=== PATIENT | male | born 1965 ===

== ENCOUNTER 2017-05-14 18:07 | Inpatient (IN) | payer OTHER ==
[2017-05-14 18:30] VITALS: BMI 34.9
[2017-05-14] MEDS ORDERED: Lactated Ringer's 1,000 ML IV ONE (19:36)
--- NOTE | 2017-05-14 19:36 | C.PDOC ---
History Of Present Illness Patient presents to the ER with a complaint of a dull throbbing abdominal pain, associated with nausea, vomiting, and diarrhea that has been worsening since approximately 09:00. Denies fever or chills. Time Seen by Provider: 05/14/17 19:36 Chief Complaint (Nursing): Abdominal Pain History Per: Patient History/Exam Limitations: no limitations Onset/Duration Of Symptoms: Hrs Current Symptoms Are (Timing): Still Present Severity: Moderate Pain Scale Rating Of: 4 Location Of Pain/Discomfort: Diffuse Radiation Of Pain To:: None Quality Of Discomfort: Dull, Other (Throbbing) Associated Symptoms: Nausea, Vomiting, Diarrhea. denies: Fever, Chills Exacerbating Factors: None Alleviating Factors: None Last Bowel Movement: Today Recent travel outside of the [place]: No Additional History Per: Patient Past Medical History Reviewed: Historical Data, Nursing Documentation, Vital Signs Vital Signs: Last Vital Signs Temp 98.6 F 05/14/17 21:04 Pulse 70 05/14/17 21:04 Resp 18 05/14/17 21:04 BP 156/72 H 05/14/17 21:04 Pulse Ox 98 05/14/17 21:04 - Medical History PMH: Asthma, HTN, Pancreatitis Surgical History: Appendectomy Family History: States: No Known Family Hx - Social History Hx Alcohol Use: Yes (last drink 15yrs ago) Hx Substance Use: No - Immunization History Hx Tetanus Toxoid Vaccination: Yes Hx Influenza Vaccination: Yes Hx Pneumococcal Vaccination: Yes Review Of Systems Constitutional: Negative for: Fever, Chills Eyes: Negative for: Vision Change ENT: Negative for: Throat Pain Cardiovascular: Negative for: Chest Pain Respiratory: Negative for: Shortness of Breath Gastrointestinal: Positive for: Nausea, Vomiting, Abdominal Pain, Diarrhea Musculoskeletal: Negative for: Back Pain Skin: Negative for: Rash Neurological: Negative for: Weakness Psych: Negative for: Anxiety Physical Exam - Physical Exam Appears: Non-toxic Skin: Warm, Dry Head: Normacephalic Eye(s): bilateral: Normal Inspection Oral Mucosa: Moist Neck: Supple Chest: Symmetrical, No Tenderness Cardiovascular: Rhythm Regular Respiratory: No Rales, No Rhonchi, No Wheezing Gastrointestinal/Abdominal: Soft, Tenderness (Diffuse), Distention, No Guarding , No Rebound Back: Normal Inspection, No CVA Tenderness Extremity: Normal ROM Extremity: Bilateral: Atraumatic Pulses: Left Dorsalis Pedis: Normal, Right Dorsalis Pedis: Normal Neurological/Psych: Oriented x3 Gait: Steady ED Course And Treatment - Laboratory Results Result Diagrams: 05/14/17 19:40 05/14/17 19:40 O2 Sat by Pulse Oximetry: 97 (room air) Pulse Ox Interpretation: Normal Progress Note: CT abd/pel, blood work, and urinalysis ordered. IV fluids, pepcid , and toradol administered. Disposition Discussed With Dr.: Kaden Velasquez Comment: accepted the pt on his service and took over the care at 9:33 PM Doctor Will See Patient In The: Hospital Counseled Patient/Family Regarding: Studies Performed, Diagnosis - Disposition Disposition: HOSPITALIZED Disposition Time: 19:36 Condition: FAIR Forms: [facility] (Romanian) - POA Present On Arrival: Poor Glycemic Control - Clinical Impression Clinical Impression: Abdominal pain, Pancreatitis - Scribe Statement The provider has reviewed the documentation as recorded by the Scribe Hudson Newberry All medical record entries made by the Scribe were at my direction and personally dictated by me. I have reviewed the chart and agree that the record accurately reflects my personal performance of the history, physical exam, medical decision making, and the department course for this patient. I have also personally directed, reviewed, and agree with the discharge instructions and disposition. Decision To Admit - Pt Status Changed To: Hospital Disposition Of: Inpatient - Admit Certification Admit to Inpatient:: After my assessment, the patient will require hospitalization for at least two midnights. This is because of the severity of symptoms shown, intensity of services needed, and/or the medical risk in this patient being treated as an outpatient. - InPatient: Physician Admission Certification:: After my assessment, the patient will require hospitalization for at least two midnights. This is because of the severity of symptoms shown, intensity of services needed, and/or the medical risk in this patient being treated as an outpatient. - . Bed Request Type: Regular Admitting Physician: Kaden Velasquez Patient Diagnosis: Abdominal pain, Pancreatitis
[2017-05-14 19:43] LABS: BASO # 0.1 K/uL (0.0-0.2); EOS % 0.1 % (0.0-4.0); MONO # 0.9 K/uL (0.0-0.8); NRBC % 0.1 % (0.0-2.0); RED CELL DISTRIBUTION WIDTH 12.9 % (11.5-14.5)
[2017-05-14] MEDS ORDERED: Lactated Ringer's 1,000 ML ONE (19:44)
[2017-05-14] MEDS ORDERED: Iohexol 300 100 ML IJ ONE (19:47)
[2017-05-14 19:59] LABS: ALB/GLOB RATIO 1.1 (1.0-2.1); ALKALINE PHOSPHATASE 100 U/L (38-126); ALT/SGPT 17 U/L (21-72); AST/SGOT 54 U/L (17-59); BLOOD UREA NITROGEN 15 mg/dL (9-20); CALCIUM 7.7 mg/dl (8.6-10.4); CARBON DIOXIDE 25 mmol/L (22-30); CHLORIDE 96 mmol/L (98-107); GFR AFRICAN-AMERICAN > 60; GLUCOSE,RANDOM 198 mg/dL (75-110); POTASSIUM 4.6 mmol/L (3.6-5.2); SODIUM 131 mmol/L (132-148); TOTAL PROTEIN 8.4 g/dL (6.3-8.3)
[2017-05-14 20:04] LABS: BASO % 0.7 % (0.0-2.0); HEMATOCRIT 47.2 % (35.0-51.0); LYMPH # 2.2 K/uL (1.0-4.3); LYMPH % 13.3 % (20.0-40.0); MEAN CELL VOLUME 94.3 fL (80.0-94.0); MEAN CORPUSCULAR HEMOGLOBIN 33.2 pg (27.0-31.0); MEAN CORPUSCULAR HGB CONC 35.2 g/dL (33.0-37.0); MEAN PLATELET VOLUME 7.1 fL (7.2-11.7); MONO % 5.2 % (0.0-10.0); WHITE BLOOD COUNT 16.4 K/uL (4.8-10.8)
[2017-05-14] MEDS ORDERED: Piperacillin/Tazobact 3.375 gm 100 ML IVPB STA (20:17)
[2017-05-14 20:25] LABS: RBC URINE 3 /hpf (0-3); TRANSITIONAL EPITHIAL < 1 /hpf (0-3); URINE BACTERIA RARE (<OCC); URINE BILIRUBIN NEGATIVE (NEGATIVE); URINE BLOOD NEGATIVE (NEGATIVE); URINE COLOR Yellow (YELLOW); URINE GLUCOSE (UA) 3+ mg/dL (Normal); URINE KETONE 1+ mg/dL (NEGATIVE); URINE LEUKOCYTE ESTERASE NEG Leu/uL (Negative); URINE PROTEIN 2+ mg/dL (NEGATIVE); URINE UROBILINOGEN NORMAL mg/dL (0.2-1.0); WBC URINE < 1 /hpf (0-5)
[2017-05-14] MEDS ORDERED: Piperacill/Tazo 3.375gm in Dex 3.375 GM/50 ML BAG IVPB STA (20:44)
[2017-05-14] MEDS ORDERED: Morphine 4 MG/ML VIAL ONE (23:20)
[2017-05-15] MEDS ORDERED: HYDROmorphone 1 mg/ml ISec IVP PRN (01:21)
[2017-05-15] MEDS ORDERED: Sodium Chloride 0.9% 1,000 ML IV SCH (01:30)
--- NOTE | 2017-05-15 07:00 | CP.PCM.PN ---
Subjective - Date & Time of Evaluation Date of Evaluation: 05/15/17 Time of Evaluation: 08:00 - Subjective Subjective: Medicine progress note for Dr. Nasim Velasquez: Patient was seen and examined at bedside this morning. He denied abdominal pain was was tender in the epigastric region during exam. He reported nausea but denied vomiting. He is currently NPO. He states he has had pancreatitis in the past and that his PMD stated he needed to control his diet and not easy greasy foods which he has still done. He denies alcohol use, last drink over 15 years ago. Patient denied fever/chill, SOB, or other symptoms at this time. Objective - Vital Signs/Intake and Output Vital Signs (last 24 hours): Temp Pulse Resp BP Pulse Ox 97.9 F 91 H 23 130/83 94 L 05/14/17 23:55 05/14/17 23:55 05/14/17 23:55 05/14/17 23:55 05/14/17 23:55 Intake and Output: 05/14/17 05/15/17 18:59 06:59 Intake Total 650 Output Total 500 Balance 150 - Medications Medications: Current Medications Enoxaparin Sodium (Lovenox) 40 mg SC DAILY [facility] Hydromorphone HCl (Dilaudid) 1 mg IVP Q4H PRN PRN Reason: Pain, severe (8-10) Last Admin: 05/15/17 04:21 Dose: 1 mg Sodium Chloride (Sodium Chloride 0.9%) 1,000 mls @ 100 mls/hr IV .Q10H PANTERA Last Admin: 05/15/17 01:50 Dose: 100 mls/hr Insulin Aspart (Novolog) 0 unit SC ACHS PANTERA PRN Reason: Protocol Pantoprazole Sodium (Protonix Inj) 40 mg IVP DAILY PANTERA - Labs Labs: 05/14/17 19:40 05/14/17 19:40 - Constitutional Appears: Non-toxic, No Acute Distress - Head Exam Head Exam: ATRAUMATIC, NORMAL INSPECTION - Eye Exam Eye Exam: EOMI - ENT Exam ENT Exam: Mucous Membranes Dry - Respiratory Exam Respiratory Exam: Clear to Ausculation Bilateral, NORMAL BREATHING PATTERN. absent: Accessory Muscle Use, Rales, Rhonchi, Wheezes, Respiratory Distress - Cardiovascular Exam Cardiovascular Exam: REGULAR RHYTHM, +S1, +S2 - GI/Abdominal Exam GI & Abdominal Exam: Soft, Tenderness, Normal Bowel Sounds (obese, mild tenderness in epigastric region with deep palpation). absent: Distended, Firm, Guarding - Extremities Exam Extremities Exam: Normal Inspection. absent: Calf Tenderness - Back Exam Back Exam: NORMAL INSPECTION - Neurological Exam Neurological Exam: Alert, Awake, CN II-XII Intact, Normal Gait, Oriented x3 - Psychiatric Exam Psychiatric exam: Normal Affect, Normal Mood - Skin Skin Exam: Dry, Intact, Normal Color, Warm Assessment and Plan - Assessment and Plan (Free Text) Assessment: 51 year old male with a PMHx of DM and multiple episodes of pancreatitis is admitted for acute pancreatitis: Plan: Acute pancreatitis NPO, will advance diet as tolerating Aggressive fluid hydration Dilaudid 1mg IVP [id number] prn pain Zofran IV prn nausea GI consulted, Dr. Street, help appreciated Lipase - 1267 on admission Amylase 474 AST/ALT - 22/37 Tbil 2.2 Trig 772, Tchol 238, HDL 41, LDL <30 [place] score 2 f/u am labs CTABd/pelvis 05/15 - Findings most compatible with pancreatitis. No definite pseudocyst formation or pancreatic necrosis appreciated at this time. Hepatic steatosis. Sigmoid diverticulosis without acute diverticulitis. Postop changes in distal small bowel. FOllow up CT advised Hyperlipidemia - mixed Trig 772, Tchol 238, HDL 41, LDL <30 Patient on Simvastatin 40mg PO daily and Gemfibrozil 600mg PO BID at home DM Accuchecks ISS Patient is NPO will adjust meds with oral intake Continue home med enalapril 5mg PO daily On hold: Jardiance 10mg PO daily, Metformin 1000mg PO BID Asthma Duonebs prn SOB Controlled Tobacco Abuse Nicotine patch prn Prophylactic Measures Lovenox 40mg SC daily Protonix 40mg IVP daily NPO
[2017-05-15 07:16] LABS: MEAN CORPUSCULAR HEMOGLOBIN 33.6 pg (27.0-31.0); RED CELL DISTRIBUTION WIDTH 13.2 % (11.5-14.5); WHITE BLOOD COUNT 12.5 K/uL (4.8-10.8)
--- NOTE | 2017-05-15 07:56 | CP.PCM.CON ---
<Claudia Graham - Last Filed: 05/15/17 14:18> History of Present Illness - History of Present Illness History of Present Illness: GI Consult Note for Dr. Street Reason for consult: acute pancreatitis 51 year old male with PMHx HTN, DM, pancreatitis, asthma presents with abdominal pain for 1 day. Patient reports pain began in the morning on the day before admission after eating breakfast. Patient admits to having a poor diet. He stated the pain was 10/10 from his epigastric region radiating to his left flank. He admitted to nausea and 5-6 episodes of nonbloody nonbilious emesis at home. Patient also had similar symptoms in June when he was seen at [facility]. He reports that since being seen at the ED last night and receiving Dilaudid his pain had subsided. Denied complaints of fever, chills, headache, dizziness, chest pain, palpitations, SOB, cough, urinary complaints, pain/ swelling in his legs bilaterally. Patient admitted to some constipation. Denied travel/sick contacts and reports being compliant with his medications. PMHx: HTN, DM, pancreatitis, asthma PSurgHx: appendectomy 19 years ago, tonsillectomy 2013 PProcedure: had a colonoscopy years ago [patient cannot remember how long or what was found]; has never had an endoscopy Fam Hx: father had diabetes and HTN; October 2015 from complications of a surgery Social Hx: admits to smoking 3.5 packs of cigarettes a day for years and quit 20 years ago; drank "a lot" of EtOH in the past but quit 15 years ago; denied drug use. Meds: please see chart Allergies: NKDA PMD: Dr. Gusman- last seen Feb 2017 for general check up Review of Systems - Review of Systems All systems: reviewed and no additional remarkable complaints except - Constitutional Constitutional: As Per HPI. absent: Chills, Fever - EENT Eyes: As Per HPI. absent: Blurred Vision Ears: As Per HPI. absent: Dizziness Nose/Mouth/Throat: As Per HPI. absent: Sore Throat - Cardiovascular Cardiovascular: As Per HPI. absent: Chest Pain, Dyspnea, Edema, Pedal Edema - Respiratory Respiratory: As Per HPI. absent: Cough, Dyspnea, Chest Congestion - Gastrointestinal Gastrointestinal: As Per HPI, Abdominal Pain, Constipation, Nausea, Vomiting (5- 6 times at home; nonbloody nonbilious). absent: Diarrhea, Heartburn, Hematemesis, Hematochezia, Melena - Genitourinary Genitourinary: As Per HPI. absent: Dysuria, Hematuria, Pyuria, Nocturia - Musculoskeletal Musculoskeletal: As Per HPI. absent: Numbness, Tingling - Integumentary Integumentary: As Per HPI. absent: Dry Skin, Rash - Neurological Neurological: As Per HPI. absent: Dizziness, Numbness, Headaches, Tingling - Psychiatric Psychiatric: As Per HPI. absent: Anxiety, Depression - Endocrine Endocrine: As Per HPI. absent: Polydipsia, Polyphagia, Polyuria - Hematologic/Lymphatic Hematologic: As Per HPI. absent: Easy Bleeding, Easy Bruising Past Patient History - Past Medical History & Family History Past Medical History?: Yes - Past Social History Smoking Status: Former Smoker - CARDIAC Hx Cardiac Disorders: Yes Hx Hypertension: Yes - PULMONARY Hx Respiratory Disorders: Yes Hx Asthma: Yes - NEUROLOGICAL Hx Neurological Disorder: No - HEENT Hx HEENT Problems: No - RENAL Hx Chronic Kidney Disease: No - ENDOCRINE/METABOLIC Hx Endocrine Disorders: Yes Hx Diabetes Mellitus Type 2: Yes - HEMATOLOGICAL/ONCOLOGICAL Hx Blood Disorders: No - INTEGUMENTARY Hx Dermatological Problems: No - MUSCULOSKELETAL/RHEUMATOLOGICAL Hx Musculoskeletal Disorders: No Hx Falls: No - GASTROINTESTINAL Hx Gastrointestinal Disorders: Yes Hx Pancreatitis: Yes - GENITOURINARY/GYNECOLOGICAL Hx Genitourinary Disorders: No - PSYCHIATRIC Hx Psychophysiologic Disorder: No Hx Substance Use: No - SURGICAL HISTORY Hx Surgeries: Yes Hx Appendectomy: Yes - ANESTHESIA Hx Anesthesia: Yes Hx Anesthesia Reactions: No Hx Malignant Hyperthermia: No Meds Allergies/Adverse Reactions: Allergies Allergy/AdvReac Type Severity Reaction Status Date / Time No Known Allergies Allergy Verified 05/14/17 18:29 - Medications Medications: Current Medications Enoxaparin Sodium (Lovenox) 40 mg SC DAILY [facility] Hydromorphone HCl (Dilaudid) 1 mg IVP Q4H PRN PRN Reason: Pain, severe (8-10) Last Admin: 05/15/17 04:21 Dose: 1 mg Sodium Chloride (Sodium Chloride 0.9%) 1,000 mls @ 100 mls/hr IV .Q10H [facility] Last Admin: 05/15/17 01:50 Dose: 100 mls/hr Insulin Aspart (Novolog) 0 unit SC ACHS [facility] PRN Reason: Protocol Pantoprazole Sodium (Protonix Inj) 40 mg IVP DAILY [facility] Physical Exam - Constitutional Appears: Non-toxic, No Acute Distress - Head Exam Head Exam: ATRAUMATIC, NORMAL INSPECTION, NORMOCEPHALIC - Eye Exam Eye Exam: EOMI, Normal appearance, PERRL. absent: Conjunctival injection, Scleral icterus - ENT Exam ENT Exam: Mucous Membranes Moist - Neck Exam Neck exam: Positive for: Full Rom, Normal Inspection. Negative for: Lymphadenopathy - Respiratory Exam Respiratory Exam: NORMAL BREATHING PATTERN. absent: Accessory Muscle Use, Respiratory Distress - Cardiovascular Exam Cardiovascular Exam: +S1, +S2. absent: Bradycardia, Tachycardia - GI/Abdominal Exam GI & Abdominal Exam: Normal Bowel Sounds, Soft. absent: Firm, Guarding, Organomegaly, Rigid, Tenderness - Extremities Exam Extremities exam: Positive for: normal inspection, pedal pulses present. Negative for: pedal edema - Neurological Exam Neurological exam: Alert, CN II-XII Intact, Oriented x3 - Psychiatric Exam Psychiatric exam: Normal Affect, Normal Mood - Skin Skin Exam: Dry, Intact, Normal Color, Warm Results - Vital Signs Recent Vital Signs: Last Vital Signs Temp 97.9 F 05/14/17 23:55 Pulse 91 H 05/14/17 23:55 Resp 23 05/14/17 23:55 BP 130/83 05/14/17 23:55 Pulse Ox 94 L 05/14/17 23:55 - Labs Result Diagrams: 05/15/17 07:09 05/15/17 07:09 Labs: Laboratory Results - last 24 hr 05/14/17 05/14/17 05/14/17 19:40 19:40 20:09 WBC 16.4 H D RBC 5.00 Hgb 16.6 D Hct 47.2 MCV 94.3 H D MCH 33.2 H MCHC 35.2 RDW 12.9 Plt Count 255 MPV 7.1 L Neut % (Auto) 80.7 H Lymph % (Auto) 13.3 L [place] % (Auto) 5.2 Eos % (Auto) 0.1 Baso % (Auto) 0.7 Neut # 13.3 H Lymph # 2.2 [place] # 0.9 H Eos # 0.0 Baso # 0.1 Sodium 131 L Potassium 4.6 Chloride 96 L Carbon Dioxide 25 Anion Gap 15 BUN 15 Creatinine 0.7 L Est GFR ( Amer) > 60 Est GFR (Non-Af Amer) > 60 POC Glucose (mg/dL) Random Glucose 198 H Calcium 7.7 L Total Bilirubin 3.0 H AST 54 ALT 17 L D Alkaline Phosphatase 100 Total Protein 8.4 H Albumin 4.4 Globulin 4.0 H Albumin/Globulin Ratio 1.1 Lipase 1267 H Urine Color Yellow Urine Clarity Clear Urine pH 7.0 Ur Specific [place] 1.026 Urine Protein 2+ H Urine Glucose (UA) 3+ H Urine Ketones 1+ H Urine Blood Negative Urine Nitrate Negative Urine Bilirubin Negative Urine Urobilinogen Normal Ur Leukocyte Esterase Neg Urine WBC (Auto) < 1 Urine RBC (Auto) 3 Ur Squamous Epith Cells < 1 Ur Transition Epith Cell < 1 Urine Bacteria Rare 05/15/17 07:43 WBC RBC Hgb Hct MCV MCH MCHC RDW Plt Count MPV Neut % (Auto) Lymph % (Auto) [place] % (Auto) Eos % (Auto) Baso % (Auto) Neut # Lymph # [place] # Eos # Baso # Sodium Potassium Chloride Carbon Dioxide Anion Gap BUN Creatinine Est GFR ( Amer) Est GFR (Non-Af Amer) POC Glucose (mg/dL) 233 H Random Glucose Calcium Total Bilirubin AST ALT Alkaline Phosphatase Total Protein Albumin Globulin Albumin/Globulin Ratio Lipase Urine Color Urine Clarity Urine pH Ur Specific [place] Urine Protein Urine Glucose (UA) Urine Ketones Urine Blood Urine Nitrate Urine Bilirubin Urine Urobilinogen Ur Leukocyte Esterase Urine WBC (Auto) Urine RBC (Auto) Ur Squamous Epith Cells Ur Transition Epith Cell Urine Bacteria Assessment & Plan - Assessment and Plan (Free Text) Assessment: 51 year old male with PMHx HTN, DM, pancreatitis, asthma presents with abdominal pain for 1 day. Patient reports pain began in the morning on the day before admission after eating breakfast. GI consulted for acute pancreatitis Plan: - CT abd/pelvis: findings compatible with pancreatitis. No definite pseudocyst formation or pancreatic necrosis appreciated at this time. Hepatic steatosis evident. Sigmoid divericulosis without acute diverticulitis appears stable. Postop changes distal small bowel evident. - Lipase: 1267--> 2486 - Lipid panel abnl: T Cholesterol: 239 LDL: pending HDL: 41 - LR @ 250cc/hr - f/u IgG4, Abd u/s, DBili, UTox, Alc level - pain control with Dilaudid 1mg ivp q4 prn - Zofran for nausea - Protonix 40mg ivp qd - Will trend BUN and hematocrit - Clear liquid diet - Recommend pancreatic CT or EUS outpatient Discussed with Dr. Jad Graham PGY2 <Abner Street Y - Last Filed: 05/15/17 17:32> Meds - Medications Medications: Current Medications Albuterol/Ipratropium (Duoneb 3 Mg/0.5 Mg (3 Ml) Ud) 3 ml INH RQ6 PRN PRN Reason: Shortness of Breath Enalapril Maleate (Vasotec) 5 mg PO DAILY [facility] Last Admin: 05/15/17 11:44 Dose: 5 mg Enoxaparin Sodium (Lovenox) 40 mg SC DAILY [facility] Last Admin: 05/15/17 09:30 Dose: 40 mg Gemfibrozil (Lopid) 600 mg PO BID [facility] Hydromorphone HCl (Dilaudid) 1 mg IVP Q4H PRN PRN Reason: Pain, severe (8-10) Last Admin: 05/15/17 04:21 Dose: 1 mg Lactated Ringer's (Lactated Ringer's) 1,000 mls @ 250 mls/hr IV .Q4H [facility] Last Admin: 05/15/17 17:23 Dose: Not Given Insulin Aspart (Novolog) 0 unit SC ACHS [facility] PRN Reason: Protocol Last Admin: 05/15/17 17:21 Dose: 2 unit Nicotine (Nicoderm Cq) 1 patch TD DAILY [facility] Last Admin: 05/15/17 11:44 Dose: Not Given Ondansetron HCl (Zofran Inj) 4 mg IVP Q12 PRN PRN Reason: Nausea/Vomiting Pantoprazole Sodium (Protonix Inj) 40 mg IVP DAILY [facility] Last Admin: 05/15/17 09:30 Dose: 40 mg Polyethylene Glycol (Miralax) 17 gm PO DAILY [facility] Last Admin: 05/15/17 11:43 Dose: 17 gm Rosuvastatin Calcium (Crestor) 20 mg PO HS [facility] Results - Vital Signs Recent Vital Signs: Last Vital Signs Temp 98.7 F 05/15/17 16:46 Pulse 97 H 05/15/17 16:46 Resp 20 05/15/17 16:46 BP 121/73 05/15/17 16:46 Pulse Ox 98 05/15/17 16:46 - Labs Result Diagrams: 05/15/17 07:09 05/15/17 07:09 Labs: Laboratory Results - last 24 hr 05/14/17 05/14/17 05/14/17 19:40 19:40 20:09 WBC 16.4 H D RBC 5.00 Hgb 16.6 D Hct 47.2 MCV 94.3 H D MCH 33.2 H MCHC 35.2 RDW 12.9 Plt Count 255 MPV 7.1 L Neut % (Auto) 80.7 H Lymph % (Auto) 13.3 L [place] % (Auto) 5.2 Eos % (Auto) 0.1 Baso % (Auto) 0.7 Neut # 13.3 H Lymph # 2.2 [place] # 0.9 H Eos # 0.0 Baso # 0.1 Sodium 131 L Potassium 4.6 Chloride 96 L Carbon Dioxide 25 Anion Gap 15 BUN 15 Creatinine 0.7 L Est GFR ( Amer) > 60 Est GFR (Non-Af Amer) > 60 POC Glucose (mg/dL) Random Glucose 198 H Calcium 7.7 L Total Bilirubin 3.0 H Direct Bilirubin AST 54 ALT 17 L D Alkaline Phosphatase 100 Lactate Dehydrogenase Total Protein 8.4 H Albumin 4.4 Globulin 4.0 H Albumin/Globulin Ratio 1.1 Triglycerides Cholesterol LDL Cholesterol Direct HDL Cholesterol Amylase Lipase 1267 H Urine Color Yellow Urine Clarity Clear Urine pH 7.0 Ur Specific [place] 1.026 Urine Protein 2+ H Urine Glucose (UA) 3+ H Urine Ketones 1+ H Urine Blood Negative Urine Nitrate Negative Urine Bilirubin Negative Urine Urobilinogen Normal Ur Leukocyte Esterase Neg Urine WBC (Auto) < 1 Urine RBC (Auto) 3 Ur Squamous Epith Cells < 1 Ur Transition Epith Cell < 1 Urine Bacteria Rare Urine Opiates Screen Urine Methadone Screen Ur Barbiturates Screen Ur Phencyclidine Scrn Ur Amphetamines Screen U Benzodiazepines Scrn U Oth Cocaine Metabols U Cannabinoids Screen Alcohol, Quantitative 05/15/17 05/15/17 05/15/17 07:09 07:09 07:09 WBC 12.5 H RBC 4.63 Hgb 15.6 Hct 43.3 MCV 93.6 MCH 33.6 H MCHC 35.9 RDW 13.2 Plt Count 224 MPV 6.7 L Neut % (Auto) Lymph % (Auto) [place] % (Auto) Eos % (Auto) Baso % (Auto) Neut # Lymph # [place] # Eos # Baso # Sodium 132 Potassium 4.0 Chloride 100 Carbon Dioxide 23 Anion Gap 13 BUN 17 Creatinine 0.7 L Est GFR ( Amer) > 60 Est GFR (Non-Af Amer) > 60 POC Glucose (mg/dL) Random Glucose 228 H Calcium 7.8 L Total Bilirubin 2.2 H Direct Bilirubin AST 22 ALT 37 Alkaline Phosphatase 77 Lactate Dehydrogenase Total Protein 6.3 Albumin 3.6 Globulin 2.7 Albumin/Globulin Ratio 1.3 Triglycerides Cholesterol LDL Cholesterol Direct HDL Cholesterol Amylase 474 H Lipase 2486 H Urine Color Urine Clarity Urine pH Ur Specific [place] Urine Protein Urine Glucose (UA) Urine Ketones Urine Blood Urine Nitrate Urine Bilirubin Urine Urobilinogen Ur Leukocyte Esterase Urine WBC (Auto) Urine RBC (Auto) Ur Squamous Epith Cells Ur Transition Epith Cell Urine Bacteria Urine Opiates Screen Urine Methadone Screen Ur Barbiturates Screen Ur Phencyclidine Scrn Ur Amphetamines Screen U Benzodiazepines Scrn U Oth Cocaine Metabols U Cannabinoids Screen Alcohol, Quantitative 05/15/17 05/15/17 05/15/17 07:43 09:13 11:16 WBC RBC Hgb Hct MCV MCH MCHC RDW Plt Count MPV Neut % (Auto) Lymph % (Auto) [place] % (Auto) Eos % (Auto) Baso % (Auto) Neut # Lymph # [place] # Eos # Baso # Sodium Potassium Chloride Carbon Dioxide Anion Gap BUN Creatinine Est GFR ( Amer) Est GFR (Non-Af Amer) POC Glucose (mg/dL) 233 H 219 H Random Glucose Calcium Total Bilirubin Direct Bilirubin AST ALT Alkaline Phosphatase Lactate Dehydrogenase Total Protein Albumin Globulin Albumin/Globulin Ratio Triglycerides 772 H D Cholesterol 239 H LDL Cholesterol Direct < 30 HDL Cholesterol 41 Amylase Lipase Urine Color Urine Clarity Urine pH Ur Specific [place] Urine Protein Urine Glucose (UA) Urine Ketones Urine Blood Urine Nitrate Urine Bilirubin Urine Urobilinogen Ur Leukocyte Esterase Urine WBC (Auto) Urine RBC (Auto) Ur Squamous Epith Cells Ur Transition Epith Cell Urine Bacteria Urine Opiates Screen Urine Methadone Screen Ur Barbiturates Screen Ur Phencyclidine Scrn Ur Amphetamines Screen U Benzodiazepines Scrn U Oth Cocaine Metabols U Cannabinoids Screen Alcohol, Quantitative 05/15/17 05/15/17 05/15/17 16:06 16:42 16:59 WBC RBC Hgb Hct MCV MCH MCHC RDW Plt Count MPV Neut % (Auto) Lymph % (Auto) [place] % (Auto) Eos % (Auto) Baso % (Auto) Neut # Lymph # [place] # Eos # Baso # Sodium Potassium Chloride Carbon Dioxide Anion Gap BUN Creatinine Est GFR ( Amer) Est GFR (Non-Af Amer) POC Glucose (mg/dL) 207 H Random Glucose Calcium Total Bilirubin Direct Bilirubin AST ALT Alkaline Phosphatase Lactate Dehydrogenase 437 Total Protein Albumin Globulin Albumin/Globulin Ratio Triglycerides Cholesterol LDL Cholesterol Direct HDL Cholesterol Amylase Lipase Urine Color Urine Clarity Urine pH Ur Specific [place] Urine Protein Urine Glucose (UA) Urine Ketones Urine Blood Urine Nitrate Urine Bilirubin Urine Urobilinogen Ur Leukocyte Esterase Urine WBC (Auto) Urine RBC (Auto) Ur Squamous Epith Cells Ur Transition Epith Cell Urine Bacteria Urine Opiates Screen Negative Urine Methadone Screen Negative Ur Barbiturates Screen Negative Ur Phencyclidine Scrn Negative Ur Amphetamines Screen Negative U Benzodiazepines Scrn Negative U Oth Cocaine Metabols Negative U Cannabinoids Screen Negative Alcohol, Quantitative 05/15/17 05/15/17 16:59 16:59 WBC RBC Hgb Hct MCV MCH MCHC RDW Plt Count MPV Neut % (Auto) Lymph % (Auto) [place] % (Auto) Eos % (Auto) Baso % (Auto) Neut # Lymph # [place] # Eos # Baso # Sodium Potassium Chloride Carbon Dioxide Anion Gap BUN Creatinine Est GFR ( Amer) Est GFR (Non-Af Amer) POC Glucose (mg/dL) Random Glucose Calcium Total Bilirubin Direct Bilirubin 0.6 H AST ALT Alkaline Phosphatase Lactate Dehydrogenase Total Protein Albumin Globulin Albumin/Globulin Ratio Triglycerides Cholesterol LDL Cholesterol Direct HDL Cholesterol Amylase Lipase Urine Color Urine Clarity Urine pH Ur Specific [place] Urine Protein Urine Glucose (UA) Urine Ketones Urine Blood Urine Nitrate Urine Bilirubin Urine Urobilinogen Ur Leukocyte Esterase Urine WBC (Auto) Urine RBC (Auto) Ur Squamous Epith Cells Ur Transition Epith Cell Urine Bacteria Urine Opiates Screen Urine Methadone Screen Ur Barbiturates Screen Ur Phencyclidine Scrn Ur Amphetamines Screen U Benzodiazepines Scrn U Oth Cocaine Metabols U Cannabinoids Screen Alcohol, Quantitative < 10 Attending/Attestation - Attestation I have personally seen and examined this patient.: Yes I have fully participated in the care of the patient.: Yes I have reviewed all pertinent clinical information: Yes Notes (Text): 05/15/17 17:26 I have seen and examined patient with GI fellow and lead medical technologist. Agree with above documentation with the following additions. In brief, this is a 51 year old male with history of HTN, DM, pancreatitis, asthma, hyperlipidemia who presents to hospital with complaint of sudden onset epigastric abdominal pain which began yesterday. Prior to this he was in usual state of health. He describes a sharp, 10/10 intensity pain that was radiating to his back and worse following meal consumption. This was accompanied with nausea and a few episodes of non-bloody emesis. He otherwise denies fever/chills, weight loss, jaundice, pruritis, change in urine or stool color. He notes similar episode in June 2016 which resolved on its own. He denies any recent medication change aside from his insulin pen. He had a colonoscopy over 10 years ago which was normal as per patient, no prior EGD. HTN / DM Asthma Hyperlipidemia Abdominal pain - acute pancreatitis CT and US imaging reviewed by me showing normal appearing gallbladder, normal caliber CBD, no cholelithiasis, +glen-pancreatic edema consistent with acute pancreatitis - Clear liquid diet as tolerated - Continue with IVF hydration therapy, pain control - Lipid management as per medical team - Fractionate bilirubin, continue to monitor LFTs - Obtain IGG4 for autoimmune evaluation given recurrent pancreatitis episodes - Patient would benefit from elective outpatient EUS or CT pancreatic protocol following resolution of acute symptoms. Will continue to monitor patient clinical course.
[2017-05-15 08:01] LABS: HEMATOCRIT 43.3 % (35.0-51.0); MEAN CELL VOLUME 93.6 fL (80.0-94.0); MEAN CORPUSCULAR HGB CONC 35.9 g/dL (33.0-37.0); MEAN PLATELET VOLUME 6.7 fL (7.2-11.7)
[2017-05-15 08:14] VITALS: RESP 20
[2017-05-15] MEDS: (Novolog) Insulin Aspart, Recombinant 100 u/ml 10 ml vial SC SCH ×3 (08:22→17:21)
--- NOTE | 2017-05-15 08:48 | CT ---
PROCEDURE: CT Abdomen and Pelvis with contrast HISTORY: rlq abd pain, COMPARISON: Abdomen and pelvis CT with contrast 07/08/2016. TECHNIQUE: Contrast dose: Omnipaque 300, 100 cc Radiation dose: Total exam DLP = 1141.16 mGy-cm. This CT exam was performed using one or more of the following dose reduction techniques: Automated exposure control, adjustment of the mA and/or kV according to patient size, and/or use of iterative reconstruction technique. FINDINGS: LOWER THORAX: Bilateral basilar dependent atelectasis is identified. No pleural or pericardial effusion identified. Small hiatal hernia again evident. LIVER: Hepatic steatosis again appreciated diffusely throughout the liver without focal mass evident. No prominent intrahepatic biliary dilatation. GALLBLADDER AND BILE DUCTS: Gallbladder stable in appearance remaining moderately distended with no radiodense cholelithiasis related at this time. No extrahepatic biliary dilatation grossly appreciated. PANCREAS: Exhibits diffuse peripancreatic reaction and trace fluid without pseudocyst formation or evidence of necrosis or focal mass appreciable this time. Findings most compatible with recurrent pancreatitis. SPLEEN: Unremarkable. ADRENALS: Unremarkable. No mass. KIDNEYS AND URETERS: Unremarkable. No hydronephrosis. No solid mass. VASCULATURE: Unremarkable. No aortic aneurysm. BOWEL: Postsurgical changes again seen related to the distal small bowel. No bowel obstruction is appreciated this time. Nonacute sigmoid diverticular changes are again appreciated as well. APPENDIX: Appendix not identified once again. No CT evidence to suggest appendicitis at this time. PERITONEUM: Unremarkable. No free fluid. No free air. LYMPH NODES: Unremarkable. No enlarged lymph nodes. BLADDER: Unremarkable. REPRODUCTIVE: Unremarkable. BONES: No acute fracture. OTHER FINDINGS: None. IMPRESSION: 1. Findings most compatible with pancreatitis. No definite pseudocyst formation or pancreatic necrosis appreciated this time. Clinical and CT follow-up are advised. 2. Hepatic steatosis again evident. 3. Sigmoid diverticulosis without acute diverticulitis appears stable. 4. Postop changes distal small bowel again evident. Concordant preliminary report from [facility], 05/14/2017.
[2017-05-15 08:50] LABS: ALB/GLOB RATIO 1.3 (1.0-2.1); ALKALINE PHOSPHATASE 77 U/L (38-126); ALT/SGPT 37 U/L (21-72); AST/SGOT 22 U/L (17-59); BILIRUBIN,TOTAL 2.2 mg/dL (0.2-1.3); BLOOD UREA NITROGEN 17 mg/dL (9-20); CALCIUM 7.8 mg/dl (8.6-10.4); CARBON DIOXIDE 23 mmol/L (22-30); CHLORIDE 100 mmol/L (98-107); GFR AFRICAN-AMERICAN > 60; GLUCOSE,RANDOM 228 mg/dL (75-110); SODIUM 132 mmol/L (132-148); TOTAL PROTEIN 6.3 g/dL (6.3-8.3)
[2017-05-15 08:59] LABS: AMYLASE 474 U/L (30-110)
[2017-05-15] MEDS: Lactated Ringer's 1,000 ML IV SCH ×6 (09:29→20:30)
[2017-05-15] MEDS: Enoxaparin 40 mg Syringe SC SCH (09:30)
[2017-05-15 09:43] LABS: CHOLESTEROL 239 mg/dL (0-199)
[2017-05-15] MEDS ORDERED: Albuterol-Ipratrop 3 mg / 0.5 (3 ml) UD INH PRN (10:29)
[2017-05-15] MEDS ORDERED: POLYETHYLENE GLYCOL 3350 17 GM/Dose PACKET PO SCH (10:45)
--- NOTE | 2017-05-15 16:29 | US ---
HISTORY: r/o cholelithiasis COMPARISON: Abdominal ultrasound performed 07/09/16, CT abdomen and pelvis with IV contrast performed 05/14/17 TECHNIQUE: Sonographic evaluation of the abdomen. FINDINGS: LIVER: Measures 22.2 cm in sagittal dimension. Echogenic liver may be seen in setting of hepatic parenchymal disease or fatty infiltration. No focal hepatic mass identified. The main portal vein appears patent with normal directional flow. No intrahepatic bile duct dilatation. GALLBLADDER: No gallstones. No gallbladder wall thickening. Negative sonographic Fraser's sign as assessed by the elevator constructor. COMMON BILE DUCT: Measures 5 mm. PANCREAS: The pancreas is not well visualized. Very limited portions of the pancreas appear heterogeneous. RIGHT KIDNEY: Measures 12.1 x 5.9 x 4.9cm. No obstructing calculus or hydronephrosis identified. LEFT KIDNEY: Measures 15.2 x 6.8 x 5.8cm. No obstructing calculus or hydronephrosis identified. SPLEEN: Measures approximately 12.4 cm. AORTA: Limited views appear unremarkable. IVC: Limited views appear unremarkable. OTHER FINDINGS: None. IMPRESSION: Hepatomegaly. Echogenic liver may be seen in setting of hepatic parenchymal disease or fatty infiltration. The pancreas is not well visualized. Very limited portions of the pancreas appear heterogeneous. Please refer to CT of the abdomen pelvis with contrast performed 05/14/17 and with amylase and lipase levels.
--- NOTE | 2017-05-15 19:48 | CP.PCM.HP ---
Past Patient History - Past Medical History & Family History Past Medical History?: Yes - Past Social History Smoking Status: Former Smoker - CARDIAC Hx Cardiac Disorders: Yes Hx Hypertension: Yes - PULMONARY Hx Respiratory Disorders: Yes Hx Asthma: Yes - NEUROLOGICAL Hx Neurological Disorder: No - HEENT Hx HEENT Problems: No - RENAL Hx Chronic Kidney Disease: No - ENDOCRINE/METABOLIC Hx Endocrine Disorders: Yes Hx Diabetes Mellitus Type 2: Yes - HEMATOLOGICAL/ONCOLOGICAL Hx Blood Disorders: No - INTEGUMENTARY Hx Dermatological Problems: No - MUSCULOSKELETAL/RHEUMATOLOGICAL Hx Musculoskeletal Disorders: No Hx Falls: No - GASTROINTESTINAL Hx Gastrointestinal Disorders: Yes Hx Pancreatitis: Yes - GENITOURINARY/GYNECOLOGICAL Hx Genitourinary Disorders: No - PSYCHIATRIC Hx Psychophysiologic Disorder: No Hx Substance Use: No - SURGICAL HISTORY Hx Surgeries: Yes Hx Appendectomy: Yes - ANESTHESIA Hx Anesthesia: Yes Hx Anesthesia Reactions: No Hx Malignant Hyperthermia: No Meds Allergies/Adverse Reactions: Allergies Allergy/AdvReac Type Severity Reaction Status Date / Time No Known Allergies Allergy Verified 05/14/17 18:29 Physical Exam - Constitutional Appears: Well - Head Exam Head Exam: ATRAUMATIC, NORMAL INSPECTION, NORMOCEPHALIC - Eye Exam Eye Exam: EOMI, Normal appearance, PERRL Pupil Exam: NORMAL ACCOMODATION, PERRL - ENT Exam ENT Exam: Mucous Membranes Moist, Normal Exam - Neck Exam Neck exam: Positive for: Normal Inspection - Respiratory Exam Respiratory Exam: Decreased Breath Sounds - Cardiovascular Exam Cardiovascular Exam: REGULAR RHYTHM, +S1, +S2 - GI/Abdominal Exam GI & Abdominal Exam: Diminished Bowel Sounds, Soft - Rectal Exam Rectal Exam: Deferred Results - Vital Signs Recent Vital Signs: Last Vital Signs Temp 98.7 F 05/15/17 16:46 Pulse 97 H 05/15/17 16:46 Resp 20 05/15/17 16:46 BP 121/73 05/15/17 16:46 Pulse Ox 98 05/15/17 16:46 - Labs Result Diagrams: 05/15/17 07:09 05/15/17 07:09 Labs: Laboratory Results - last 24 hr 05/14/17 05/14/17 05/14/17 19:40 19:40 20:09 WBC 16.4 H D RBC 5.00 Hgb 16.6 D Hct 47.2 MCV 94.3 H D MCH 33.2 H MCHC 35.2 RDW 12.9 Plt Count 255 MPV 7.1 L Neut % (Auto) 80.7 H Lymph % (Auto) 13.3 L Turner % (Auto) 5.2 Eos % (Auto) 0.1 Baso % (Auto) 0.7 Neut # 13.3 H Lymph # 2.2 Turner # 0.9 H Eos # 0.0 Baso # 0.1 Sodium 131 L Potassium 4.6 Chloride 96 L Carbon Dioxide 25 Anion Gap 15 BUN 15 Creatinine 0.7 L Est GFR ( Amer) > 60 Est GFR (Non-Af Amer) > 60 POC Glucose (mg/dL) Random Glucose 198 H Calcium 7.7 L Total Bilirubin 3.0 H Direct Bilirubin AST 54 ALT 17 L D Alkaline Phosphatase 100 Lactate Dehydrogenase Total Protein 8.4 H Albumin 4.4 Globulin 4.0 H Albumin/Globulin Ratio 1.1 Triglycerides Cholesterol LDL Cholesterol Direct HDL Cholesterol Amylase Lipase 1267 H Urine Color Yellow Urine Clarity Clear Urine pH 7.0 Ur Specific Evans 1.026 Urine Protein 2+ H Urine Glucose (UA) 3+ H Urine Ketones 1+ H Urine Blood Negative Urine Nitrate Negative Urine Bilirubin Negative Urine Urobilinogen Normal Ur Leukocyte Esterase Neg Urine WBC (Auto) < 1 Urine RBC (Auto) 3 Ur Squamous Epith Cells < 1 Ur Transition Epith Cell < 1 Urine Bacteria Rare Urine Opiates Screen Urine Methadone Screen Ur Barbiturates Screen Ur Phencyclidine Scrn Ur Amphetamines Screen U Benzodiazepines Scrn U Oth Cocaine Metabols U Cannabinoids Screen Alcohol, Quantitative 05/15/17 05/15/17 05/15/17 07:09 07:09 07:09 WBC 12.5 H RBC 4.63 Hgb 15.6 Hct 43.3 MCV 93.6 MCH 33.6 H MCHC 35.9 RDW 13.2 Plt Count 224 MPV 6.7 L Neut % (Auto) Lymph % (Auto) Turner % (Auto) Eos % (Auto) Baso % (Auto) Neut # Lymph # Turner # Eos # Baso # Sodium 132 Potassium 4.0 Chloride 100 Carbon Dioxide 23 Anion Gap 13 BUN 17 Creatinine 0.7 L Est GFR ( Amer) > 60 Est GFR (Non-Af Amer) > 60 POC Glucose (mg/dL) Random Glucose 228 H Calcium 7.8 L Total Bilirubin 2.2 H Direct Bilirubin AST 22 ALT 37 Alkaline Phosphatase 77 Lactate Dehydrogenase Total Protein 6.3 Albumin 3.6 Globulin 2.7 Albumin/Globulin Ratio 1.3 Triglycerides Cholesterol LDL Cholesterol Direct HDL Cholesterol Amylase 474 H Lipase 2486 H Urine Color Urine Clarity Urine pH Ur Specific Evans Urine Protein Urine Glucose (UA) Urine Ketones Urine Blood Urine Nitrate Urine Bilirubin Urine Urobilinogen Ur Leukocyte Esterase Urine WBC (Auto) Urine RBC (Auto) Ur Squamous Epith Cells Ur Transition Epith Cell Urine Bacteria Urine Opiates Screen Urine Methadone Screen Ur Barbiturates Screen Ur Phencyclidine Scrn Ur Amphetamines Screen U Benzodiazepines Scrn U Oth Cocaine Metabols U Cannabinoids Screen Alcohol, Quantitative 05/15/17 05/15/17 05/15/17 07:43 09:13 11:16 WBC RBC Hgb Hct MCV MCH MCHC RDW Plt Count MPV Neut % (Auto) Lymph % (Auto) Turner % (Auto) Eos % (Auto) Baso % (Auto) Neut # Lymph # Turner # Eos # Baso # Sodium Potassium Chloride Carbon Dioxide Anion Gap BUN Creatinine Est GFR ( Amer) Est GFR (Non-Af Amer) POC Glucose (mg/dL) 233 H 219 H Random Glucose Calcium Total Bilirubin Direct Bilirubin AST ALT Alkaline Phosphatase Lactate Dehydrogenase Total Protein Albumin Globulin Albumin/Globulin Ratio Triglycerides 772 H D Cholesterol 239 H LDL Cholesterol Direct < 30 HDL Cholesterol 41 Amylase Lipase Urine Color Urine Clarity Urine pH Ur Specific Evans Urine Protein Urine Glucose (UA) Urine Ketones Urine Blood Urine Nitrate Urine Bilirubin Urine Urobilinogen Ur Leukocyte Esterase Urine WBC (Auto) Urine RBC (Auto) Ur Squamous Epith Cells Ur Transition Epith Cell Urine Bacteria Urine Opiates Screen Urine Methadone Screen Ur Barbiturates Screen Ur Phencyclidine Scrn Ur Amphetamines Screen U Benzodiazepines Scrn U Oth Cocaine Metabols U Cannabinoids Screen Alcohol, Quantitative 05/15/17 05/15/17 05/15/17 16:06 16:42 16:59 WBC RBC Hgb Hct MCV MCH MCHC RDW Plt Count MPV Neut % (Auto) Lymph % (Auto) Turner % (Auto) Eos % (Auto) Baso % (Auto) Neut # Lymph # Turner # Eos # Baso # Sodium Potassium Chloride Carbon Dioxide Anion Gap BUN Creatinine Est GFR ( Amer) Est GFR (Non-Af Amer) POC Glucose (mg/dL) 207 H Random Glucose Calcium Total Bilirubin Direct Bilirubin AST ALT Alkaline Phosphatase Lactate Dehydrogenase 437 Total Protein Albumin Globulin Albumin/Globulin Ratio Triglycerides Cholesterol LDL Cholesterol Direct HDL Cholesterol Amylase Lipase Urine Color Urine Clarity Urine pH Ur Specific Evans Urine Protein Urine Glucose (UA) Urine Ketones Urine Blood Urine Nitrate Urine Bilirubin Urine Urobilinogen Ur Leukocyte Esterase Urine WBC (Auto) Urine RBC (Auto) Ur Squamous Epith Cells Ur Transition Epith Cell Urine Bacteria Urine Opiates Screen Negative Urine Methadone Screen Negative Ur Barbiturates Screen Negative Ur Phencyclidine Scrn Negative Ur Amphetamines Screen Negative U Benzodiazepines Scrn Negative U Oth Cocaine Metabols Negative U Cannabinoids Screen Negative Alcohol, Quantitative 05/15/17 05/15/17 16:59 16:59 WBC RBC Hgb Hct MCV MCH MCHC RDW Plt Count MPV Neut % (Auto) Lymph % (Auto) Turner % (Auto) Eos % (Auto) Baso % (Auto) Neut # Lymph # Turner # Eos # Baso # Sodium Potassium Chloride Carbon Dioxide Anion Gap BUN Creatinine Est GFR ( Amer) Est GFR (Non-Af Amer) POC Glucose (mg/dL) Random Glucose Calcium Total Bilirubin Direct Bilirubin 0.6 H AST ALT Alkaline Phosphatase Lactate Dehydrogenase Total Protein Albumin Globulin Albumin/Globulin Ratio Triglycerides Cholesterol LDL Cholesterol Direct HDL Cholesterol Amylase Lipase Urine Color Urine Clarity Urine pH Ur Specific Evans Urine Protein Urine Glucose (UA) Urine Ketones Urine Blood Urine Nitrate Urine Bilirubin Urine Urobilinogen Ur Leukocyte Esterase Urine WBC (Auto) Urine RBC (Auto) Ur Squamous Epith Cells Ur Transition Epith Cell Urine Bacteria Urine Opiates Screen Urine Methadone Screen Ur Barbiturates Screen Ur Phencyclidine Scrn Ur Amphetamines Screen U Benzodiazepines Scrn U Oth Cocaine Metabols U Cannabinoids Screen Alcohol, Quantitative < 10
[2017-05-16] MEDS: Lactated Ringer's 1,000 ML IV SCH ×2 (00:42→04:53)
[2017-05-16 01:26] VITALS: PULSE 100; TEMP 99.6; O2SAT 94
[2017-05-16 07:50] LABS: BASO % 0.3 % (0.0-2.0); EOS # 0.2 K/uL (0.0-0.7); EOS % 1.5 % (0.0-4.0); HEMATOCRIT 39.4 % (35.0-51.0); LYMPH # 1.8 K/uL (1.0-4.3); LYMPH % 14.9 % (20.0-40.0); MEAN CELL VOLUME 94.7 fL (80.0-94.0); MEAN CORPUSCULAR HEMOGLOBIN 33.5 pg (27.0-31.0); MEAN CORPUSCULAR HGB CONC 35.3 g/dL (33.0-37.0); MEAN PLATELET VOLUME 6.6 fL (7.2-11.7); MONO % 8.5 % (0.0-10.0); NRBC % 0.1 % (0.0-2.0); WHITE BLOOD COUNT 11.8 K/uL (4.8-10.8)
[2017-05-16] MEDS ORDERED: Lactated Ringer's 1,000 ML IV SCH (08:15)
[2017-05-16] MEDS: (Novolog) Insulin Aspart, Recombinant 100 u/ml 10 ml vial SC SCH ×2 (08:26→12:01)
--- NOTE | 2017-05-16 08:28 | CP.PCM.PN ---
<Delilah Mai - Last Filed: 05/16/17 08:32> Subjective - Date & Time of Evaluation Date of Evaluation: 05/16/17 Time of Evaluation: 07:00 - Subjective Subjective: GI Fellow PGY4 Progress Note Pt seen and evaluated at bedside, pt denies any abdominal pain, tolerating liquid diet with no N/V. Pt with no BM since admission and reports issues with constipation. ROS: A 12pt ROS was negative except as above Objective - Vital Signs/Intake and Output Vital Signs (last 24 hours): Temp Pulse Resp BP Pulse Ox 99.6 F 100 H 20 128/72 94 L 05/16/17 00:00 05/16/17 00:00 05/16/17 00:00 05/16/17 00:00 05/16/17 00:00 Intake and Output: 05/16/17 05/16/17 06:59 18:59 Intake Total 4200 Output Total 750 Balance 3450 - Medications Medications: Current Medications Albuterol/Ipratropium (Duoneb 3 Mg/0.5 Mg (3 Ml) Ud) 3 ml INH RQ6 PRN PRN Reason: Shortness of Breath Bisacodyl (Dulcolax) 5 mg PO ONCE ONE Stop: 05/16/17 09:01 Enalapril Maleate (Vasotec) 5 mg PO DAILY [facility] Last Admin: 05/15/17 11:44 Dose: 5 mg Enoxaparin Sodium (Lovenox) 40 mg SC DAILY [facility] Last Admin: 05/15/17 09:30 Dose: 40 mg Gemfibrozil (Lopid) 600 mg PO BID [facility] Hydromorphone HCl (Dilaudid) 1 mg IVP Q4H PRN PRN Reason: Pain, severe (8-10) Last Admin: 05/15/17 04:21 Dose: 1 mg Lactated Ringer's (Lactated Ringer's) 1,000 mls @ 100 mls/hr IV .Q10H [facility] Insulin Aspart (Novolog) 0 unit SC ACHS [facility] PRN Reason: Protocol Last Admin: 05/15/17 17:21 Dose: 2 unit Nicotine (Nicoderm Cq) 1 patch TD DAILY [facility] Last Admin: 05/15/17 11:44 Dose: Not Given Ondansetron HCl (Zofran Inj) 4 mg IVP Q12 PRN PRN Reason: Nausea/Vomiting Pantoprazole Sodium (Protonix Ec Tab) 40 mg PO DAILY [facility] Polyethylene Glycol (Miralax) 17 gm PO BID [facility] Rosuvastatin Calcium (Crestor) 20 mg PO HS [facility] Last Admin: 05/15/17 21:14 Dose: 20 mg - Labs Labs: 05/16/17 07:37 05/15/17 07:09 - Constitutional Appears: Non-toxic, No Acute Distress - Head Exam Head Exam: ATRAUMATIC, NORMAL INSPECTION, NORMOCEPHALIC - Eye Exam Eye Exam: EOMI, Normal appearance, PERRL - ENT Exam ENT Exam: Mucous Membranes Moist, Normal Exam - Neck Exam Neck Exam: Full ROM - Respiratory Exam Respiratory Exam: Clear to Ausculation Bilateral, NORMAL BREATHING PATTERN - Cardiovascular Exam Cardiovascular Exam: REGULAR RHYTHM - GI/Abdominal Exam GI & Abdominal Exam: Distended, Soft, Normal Bowel Sounds. absent: Guarding, Rigid, Tenderness, Organomegaly - Rectal Exam Rectal Exam: Deferred - Extremities Exam Extremities Exam: Full ROM, Normal Inspection - Back Exam Back Exam: NORMAL INSPECTION - Neurological Exam Neurological Exam: Alert, Awake, Oriented x3 - Psychiatric Exam Psychiatric exam: Normal Affect, Normal Mood - Skin Skin Exam: Dry, Intact, Normal Color, Warm Assessment and Plan - Assessment and Plan (Free Text) Assessment: This is a 51 year old male with history of HTN, DM, pancreatitis, asthma, hyperlipidemia who presents to hospital with complaint of sudden onset epigastric abdominal pain. 1. Acute pancreatitis 2. Constipation 3. Hx of etoh use and recurrent pancreatitis 4. HLD 5. 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 - Elective outpatient EUS or CT pancreatic protocol after acute symptoms resolve - Bowel regimen for constipation, miralax bid and dulcolax one time dose - Please call with any questions or concerns <Abner Street - Last Filed: 05/16/17 15:43> Objective - Vital Signs/Intake and Output Vital Signs (last 24 hours): Temp Pulse Resp BP Pulse Ox 99.6 F 100 H 20 117/71 94 L 05/16/17 00:00 05/16/17 00:00 05/16/17 00:00 05/16/17 10:32 05/16/17 00:00 Intake and Output: 05/16/17 05/16/17 06:59 18:59 Intake Total 4200 500 Output Total 750 Balance 3450 500 - Medications Medications: Current Medications Albuterol/Ipratropium (Duoneb 3 Mg/0.5 Mg (3 Ml) Ud) 3 ml INH RQ6 PRN PRN Reason: Shortness of Breath Enalapril Maleate (Vasotec) 5 mg PO DAILY [facility] Last Admin: 05/16/17 10:32 Dose: 5 mg Enoxaparin Sodium (Lovenox) 40 mg SC DAILY [facility] Last Admin: 05/16/17 10:33 Dose: 40 mg Gemfibrozil (Lopid) 600 mg PO BID [facility] Last Admin: 05/16/17 10:35 Dose: 600 mg Hydromorphone HCl (Dilaudid) 1 mg IVP Q4H PRN PRN Reason: Pain, severe (8-10) Last Admin: 05/15/17 04:21 Dose: 1 mg Lactated Ringer's (Lactated Ringer's) 1,000 mls @ 100 mls/hr IV .Q10H [facility] Last Admin: 05/16/17 08:37 Dose: 100 mls/hr Insulin Aspart (Novolog) 0 unit SC ACHS [facility] PRN Reason: Protocol Last Admin: 05/16/17 12:01 Dose: 3 unit Nicotine (Nicoderm Cq) 1 patch TD DAILY [facility] Last Admin: 05/16/17 10:33 Dose: Not Given Ondansetron HCl (Zofran Inj) 4 mg IVP Q12 PRN PRN Reason: Nausea/Vomiting Pantoprazole Sodium (Protonix Ec Tab) 40 mg PO DAILY [facility] Last Admin: 05/16/17 10:33 Dose: 40 mg Polyethylene Glycol (Miralax) 17 gm PO BID [facility] Last Admin: 05/16/17 10:33 Dose: 17 gm Rosuvastatin Calcium (Crestor) 20 mg PO HS [facility] Last Admin: 05/15/17 21:14 Dose: 20 mg - Labs Labs: 05/16/17 07:37 05/16/17 07:37 Attending/Attestation - Attestation I have personally seen and examined this patient.: Yes I have fully participated in the care of the patient.: Yes I have reviewed all pertinent clinical information, including history, physical exam and plan: Yes Notes (Text): 05/16/17 15:39 I have seen and examined patient with GI fellow. No acute events overnight. His abdominal pain has improved and he is tolerating PO diet without difficulty. He denies nausea, vomiting, fever/chills. Review of vitals from today shows tachycardia. DM / HTN Obesity Asthma Hyperlipidemia Acute pancreatitis, unclear etiology - Low fat diet as tolerated - Awaiting results of IGG4 testing - LFTs stable, continue to monitor - From GI perspective, ok to discharge patient home with subsequent outpatient follow up. Patient may benefit from elective EUS examination given recurrent episode of pancreatitis. Appointment made with Dr. Garcia on June 05 at 10 am. Will sign off case, please reconsult as necessary, thank you.
[2017-05-16 08:47] LABS: ALB/GLOB RATIO 1.1 (1.0-2.1); ALKALINE PHOSPHATASE 70 U/L (38-126); ALT/SGPT 23 U/L (21-72); AMYLASE 176 U/L (30-110); AST/SGOT 22 U/L (17-59); BILIRUBIN,TOTAL 2.6 mg/dL (0.2-1.3); BLOOD UREA NITROGEN 9 mg/dL (9-20); CALCIUM 7.7 mg/dl (8.6-10.4); CARBON DIOXIDE 26 mmol/L (22-30); CHLORIDE 98 mmol/L (98-107); GFR AFRICAN-AMERICAN > 60; GLUCOSE,RANDOM 219 mg/dL (75-110); MAGNESIUM 1.6 mg/dL (1.6-2.3); PHOSPHOROUS 2.2 mg/dL (2.5-4.5); POTASSIUM 3.7 mmol/L (3.6-5.2); SODIUM 128 mmol/L (132-148); TOTAL PROTEIN 6.3 g/dL (6.3-8.3)
[2017-05-16] MEDS ORDERED: Bisacodyl 5mg EC Tab PO ONE (09:00)
[2017-05-16] MEDS ORDERED: Pantoprazole 40 mg EC Tab PO SCH (10:00)
[2017-05-16] MEDS ORDERED: POLYETHYLENE GLYCOL 3350 17 GM/Dose PACKET PO SCH (10:00)
--- NOTE | 2017-05-16 10:01 | CP.PCM.PN ---
Subjective - Date & Time of Evaluation Date of Evaluation: 05/16/17 Time of Evaluation: 09:30 - Subjective Subjective: PGY-[address] Nasim Velasquez Patient was seen and examined at bedside. Patient reports his abdominal pain, nausea, and vomiting have improved. Patient finished all his breakfast this morning. He denies fever, chills, headache, shortness of breath, or chest pain. Objective - Vital Signs/Intake and Output Vital Signs (last 24 hours): Temp Pulse Resp BP Pulse Ox 99.6 F 100 H 20 128/72 94 L 05/16/17 00:00 05/16/17 00:00 05/16/17 00:00 05/16/17 00:00 05/16/17 00:00 Intake and Output: 05/16/17 05/16/17 06:59 18:59 Intake Total 4200 Output Total 750 Balance 3450 - Medications Medications: Current Medications Albuterol/Ipratropium (Duoneb 3 Mg/0.5 Mg (3 Ml) Ud) 3 ml INH RQ6 PRN PRN Reason: Shortness of Breath Enalapril Maleate (Vasotec) 5 mg PO DAILY [facility] Last Admin: 05/15/17 11:44 Dose: 5 mg Enoxaparin Sodium (Lovenox) 40 mg SC DAILY [facility] Last Admin: 05/15/17 09:30 Dose: 40 mg Gemfibrozil (Lopid) 600 mg PO BID [facility] Hydromorphone HCl (Dilaudid) 1 mg IVP Q4H PRN PRN Reason: Pain, severe (8-10) Last Admin: 05/15/17 04:21 Dose: 1 mg Lactated Ringer's (Lactated Ringer's) 1,000 mls @ 100 mls/hr IV .Q10H [facility] Last Admin: 05/16/17 08:37 Dose: 100 mls/hr Insulin Aspart (Novolog) 0 unit SC ACHS [facility] PRN Reason: Protocol Last Admin: 05/16/17 08:26 Dose: 1 unit Nicotine (Nicoderm Cq) 1 patch TD DAILY [facility] Last Admin: 05/15/17 11:44 Dose: Not Given Ondansetron HCl (Zofran Inj) 4 mg IVP Q12 PRN PRN Reason: Nausea/Vomiting Pantoprazole Sodium (Protonix Ec Tab) 40 mg PO DAILY [facility] Polyethylene Glycol (Miralax) 17 gm PO BID [facility] Rosuvastatin Calcium (Crestor) 20 mg PO HS [facility] Last Admin: 05/15/17 21:14 Dose: 20 mg - Labs Labs: 05/16/17 07:37 05/16/17 07:37 - Constitutional Appears: Non-toxic, No Acute Distress - Head Exam Head Exam: ATRAUMATIC, NORMOCEPHALIC - Eye Exam Eye Exam: EOMI - ENT Exam ENT Exam: Mucous Membranes Moist - Neck Exam Neck Exam: Normal Inspection - Respiratory Exam Respiratory Exam: Clear to Ausculation Bilateral, NORMAL BREATHING PATTERN. absent: Respiratory Distress - Cardiovascular Exam Cardiovascular Exam: REGULAR RHYTHM, +S1, +S2. absent: Murmur - GI/Abdominal Exam GI & Abdominal Exam: Soft, Normal Bowel Sounds. absent: Tenderness - Extremities Exam Extremities Exam: Full ROM, Normal Capillary Refill. absent: Joint Swelling, Normal Inspection (old scars in the anterior shins), Pedal Edema - Neurological Exam Neurological Exam: Alert, Awake, Oriented x3 - Psychiatric Exam Psychiatric exam: Normal Affect, Normal Mood - Skin Skin Exam: Dry, Warm Assessment and Plan - Assessment and Plan (Free Text) Assessment: Acute pancreatitis Improving, will advance diet as tolerating Follow GI recommendations LR @100ml/hr U/S negative for gallstones Dilaudid 1mg IVP [id number] prn pain Zofran IV prn nausea Lipase - 816 today Amylase 176 today AST/ALT - 22/23 Tbil 2.6 Trig 772, Tchol 238, HDL 41, LDL <30 [place] score 2 on admission CTABd/pelvis 05/15 - Findings most compatible with pancreatitis. No definite pseudocyst formation or pancreatic necrosis appreciated at this time. Hepatic steatosis. Sigmoid diverticulosis without acute diverticulitis. Postop changes in distal small bowel. Follow up CT advised Hyperlipidemia - mixed Trig 772, Tchol 238, HDL 41, LDL <30 Patient on Simvastatin 40mg PO daily and Gemfibrozil 600mg PO BID at home DM Accuchecks ISS Continue home med enalapril 5mg PO daily On hold: Jardiance 10mg PO daily, Metformin 1000mg PO BID Asthma Duonebs prn SOB Controlled Tobacco Abuse Nicotine patch prn Prophylactic Measures Lovenox 40mg SC daily Protonix 40mg IVP daily Patient is stable to be discharge per GI, will need outpatient f/u for EUS or CT pancreatic protocol All management per Dr. Velasquez
[2017-05-16] MEDS: Enoxaparin 40 mg Syringe SC SCH (10:33)
[2017-05-16 10:36] VITALS: BP 117/71
[2017-05-17] MEDS ORDERED: Pneumococcal 23-Valent Vaccine SC ONE (10:00)
== END 2017-05-16 16:05 | disposition home or self-care (01) | DRG 204 ==
LOC: C.ER 18:07 → C.9E 21:31 → C.3T 22:35
PROVIDERS: ADMIT Internal Medicine Nephrology; ATTEND Internal Medicine Nephrology
DX: K85.90 Acute pancreatitis without necrosis or infection, unspecified (principal); E11.9 Type 2 diabetes mellitus without complications; E66.9 Obesity, unspecified; E78.5 Hyperlipidemia, unspecified; I10 Essential (primary) hypertension; J45.909 Unspecified asthma, uncomplicated; K59.00 Constipation, unspecified; Z72.0 Tobacco use; Z79.84 Long term (current) use of oral hypoglycemic drugs; Z68.34 Body mass index [BMI] 34.0-34.9, adult

== ENCOUNTER 2017-07-08 06:25 | Day surgery (SDC) | payer OTHER ==
--- NOTE | 2017-07-08 07:48 | CP.SDSHP ---
Same Day Surgery H & P - History Proposed Procedure: egd eus Pre-Op Diagnosis: h/o pancreatitis - Allergies Allergies: Allergies No Known Allergies Allergy (Verified 05/14/17 18:29) - Physical Exam Vital Signs: Vital Signs 07/08/17 06:49 Temperature 97.9 F Pulse Rate 80 Respiratory 20 Rate Blood Pressure 115/72 O2 Sat by Pulse 97 Oximetry Mental Status: Alert & Oriented x3 Neuro: WNL Heart: WNL Lungs: WNL GI: WNL - {Optional Preform as Required} Abdomen: WNL - Impression Impression: h/o pancreatitis Pt. Evaluated Today:Candidate for Anesthesia & Procedure: Yes - Date & Time Date: 07/08/17 Time: 07:48 Short Stay Discharge - Short Stay Discharge Admitting Diagnosis/Reason for Visit: PERSONAL HISTORY OF OTHER DISEASES OF THE DIGESTIV Disposition: HOME/ ROUTINE
[2017-07-08] MEDS ORDERED: Propofol 10 mg/ml Inj (20 ML) ONE ×3 (08:01→08:25)
[2017-07-08] MEDS ORDERED: Lactated Ringer's 1,000 ML IV ONE ×2 (08:01)
[2017-07-08] MEDS ORDERED: Midazolam 2 MG/2 ML VIAL ONE (08:01)
[2017-07-08 09:08] VITALS: TEMP 96.8
[2017-07-08] MEDS ORDERED: Albuterol 0.042% Inhal Sol (1.25 mg/3 mL) UD INH STA (10:11)
[2017-07-08] MEDS ORDERED: Albuterol 0.083% Inhal Sol (2.5 mg/3 mL) UD INH PRN (10:29)
[2017-07-08] MEDS ORDERED: Albuterol-Ipratrop 3 mg / 0.5 (3 ml) UD ONE (10:30)
[2017-07-08] MEDS ORDERED: Albuterol-Ipratrop 3 mg / 0.5 (3 ml) UD INH SCH (12:00)
[2017-07-08 14:43] VITALS: PULSE 75
[2017-07-08 14:59] VITALS: BP 121/73; RESP 15; O2SAT 97
== END 2017-07-08 11:20 | disposition home or self-care (01) ==
LOC: C.ENDO 06:25
PROVIDERS: ATTEND Internal Medicine
DX: K22.70 Barrett's esophagus without dysplasia (principal); Z87.19 Personal history of other diseases of the digestive system; K80.20 Calculus of gallbladder without cholecystitis without obstruction; K29.70 Gastritis, unspecified, without bleeding
CPT/HCPCS: 43237; 43239; 82948; 88305; 94640; J2001; J2250; J2704; J7120